=== PATIENT | male | born 1965 | race African-American/Black ===

== ENCOUNTER 2020-08-27 05:05 | Emergency (ER) | payer BC ==
[~2020-08-27 05:05] MED LIST: BACTRIM 400-801 TAB PO; BACTRIM DS TAB1 EAC1 PO; FLAGYL500 MG PO; FLOMAX0.4 MG PO; IBUPROFEN800 MG PO; OMEPRAZOLE20 M1 PO; PEPTO-BISMOL262 M1 PO; PREDNISONE20 MG PO; PROBIOTIC1 EAC1 PO; TETRACYCLINE
== END 2020-10-10 02:45 | disposition home or self-care (01) ==
LOC: D.ER 05:05
DX: R97.20 Elevated prostate specific antigen [PSA] (principal); N40.1 Benign prostatic hyperplasia with lower urinary tract symptoms; R56.9 Unspecified convulsions

== ENCOUNTER 2021-01-06 20:36 | Emergency (ER) | payer BC ==
[~2021-01-06] VITALS: Ht 170.2 cm; Wt 65.9 kg
[2021-01-06 20:44] VITALS: BP 115/79; Ht 170.2 cm; Wt 65.9 kg
== END 2021-01-06 21:20 | disposition home or self-care (01) ==
LOC: D.ER 20:36
DX: J02.9 Acute pharyngitis, unspecified (principal); J44.9 Chronic obstructive pulmonary disease, unspecified; K21.9 Gastro-esophageal reflux disease without esophagitis